=== PATIENT | male | born 1945 | race Caucasian/White ===

== ENCOUNTER 2018-01-11 05:15 | Inpatient (IN) | payer MEDICARE, BC, OTHER ==
[2018-01-11 05:38] LABS: ADD MAN DIFF? NO
[2018-01-11 05:44] LABS: BASOPHILS % 0.3 % (0.0-2.0); EOSINOPHILS # 0.1 10^3/ul (0.0-0.5); EOSINOPHILS % 0.3 % (0.0-7.0); HEMATOCRIT 40.2 % (42.0-52.0); HEMOGLOBIN 12.5 g/dl (14.0-18.0); LYMPHOCYTES # 0.9 10^3/ul (0.8-2.9); LYMPHOCYTES % 5.8 % (15.0-51.0); MEAN CORPUSCULAR HEMOGLOBIN 29.8 pg (29.0-33.0); MEAN CORPUSCULAR HGB CONC 31.1 g/dl (32.0-37.0); MEAN CORPUSCULAR VOLUME 95.7 fl (82.0-101.0); MEAN PLATELET VOLUME 10.3 fl (7.4-10.4); MONOCYTE # 1.2 10^3/ul (0.3-0.9); MONOCYTES % 7.6 % (0.0-11.0); NEUTROPHIL # 13.2 10^3/ul (1.6-7.5); NEUTROPHILS % 85.7 % (39.0-77.0); PLATELET COUNT 293 10^3/UL (140-415); RED CELL DISTRIBUTION WIDTH 17.5 % (11.5-14.5)
[2018-01-11 05:44] LABS: WHITE BLOOD COUNT 15.4 10^3/ul (4.8-10.8)
[2018-01-11] MEDS: FENTAnyl 50 MCG/ML VIAL IV (05:51)
[2018-01-11 05:56] LABS: AADO2 Arterial 604.1 mmHg (7.0-24.0); Allen Test ACCEPTAB; Arterial Base Excess 6.8 mmol/L (-3.0-3); Arterial Blood Gas Oxygen Sat 93.8 mmHG (95.0-100.0); Arterial COHb 0.1 % (0.0-3.0); Arterial Fraction of Oxyhgb 93.5 % (93.0-99.0); Arterial HCO3 30.4 mmol/L (22.0-26.0); Arterial MetHb 0.2 % (0.0-1.5); Arterial Total Hemglobin 13.2 g/dl (12.0-18.0); Arterial pCO2 39.6 mmhg (35-45); MODE VENT - AC; Site Right Radial
[2018-01-11 06:03] LABS: ANION GAP 14 (8-16); BLOOD UREA NITROGEN 44 mg/dl (7-20); CALCIUM 9.3 mg/dl (8.4-10.2); CARBON DIOXIDE 35 mmol/L (21-31); CHLORIDE 104 mmol/L (97-110); CREATININE 0.65 mg/dl (0.61-1.24); GLUCOSE 164 mg/dl (70-220); POTASSIUM 4.7 mmol/L (3.5-5.1); SODIUM 148 mmol/L (135-144)
[2018-01-11 06:04] LABS: INR 1.02; PARTIAL THROMBOPLASTIN TIME 29.8 Sec (25.0-35.0); PROTIME 13.5 Sec (11.9-14.9); PT RATIO 1.1
[2018-01-11] MEDS: SODIUM CHLORIDE 0.9% 1L BAG IV* (06:10)
[2018-01-11] MEDS: CEFEPIME 1GM/50 ML (PMX) 50 ML IVPB (06:12)
[2018-01-11 06:21] LABS: TROPONIN-I < 0.010 ng/ml (0.000-0.120)
[2018-01-11] MEDS ORDERED: ACETAMINOPHEN 325 MG TAB PO (06:30)
[2018-01-11] MEDS ORDERED: ONDANSETRON 4 MG INJ IV (06:30)
[2018-01-11 06:41] LABS: LACTIC ACID 3.3 mmol/L (0.5-2.0)
[2018-01-11] MEDS: VANCOMYCIN 1 GM (PMX) 250 ML IVPB (06:45)
[2018-01-11] MEDS: FUROSEMIDE 20 MG INJ IV (12:24)
[2018-01-11] MEDS ORDERED: NACL 0.9% 3 ML SYG IV (12:30)
[2018-01-11] MEDS: LANSOPRAZOLE 30 MG CAP GTB (13:41)
[2018-01-11] MEDS: LORAZEPAM 2 MG INJ IV (13:41)
[2018-01-11] MEDS ORDERED: VANCOMYCIN IV PER PHARMACY XX (18:00)
[2018-01-11] MEDS: DOXAZOSIN 2 MG TAB GTB (21:00)
[2018-01-11] MEDS ORDERED: DOXAZOSIN 2 MG TAB GTB (21:00)
[2018-01-11] MEDS: MEROPENEM 1 GM/50ML(PMX) 50 ML IVPB (21:53)
[2018-01-11] MEDS: QUETIAPINE 25 MG TAB GTB (22:06)
[2018-01-11] MEDS: ATORVASTATIN 20 MG TAB PO (22:07)
[2018-01-12] MEDS: MEROPENEM 1 GM/50ML(PMX) 50 ML IVPB ×3 (05:02→20:26)
[2018-01-12] MEDS: LANSOPRAZOLE 30 MG CAP GTB (05:04)
[2018-01-12] MEDS: ACETAMINOPHEN 325 MG TAB GTB (05:04)
[2018-01-12] MEDS: VANCOMYCIN 1 GM 250 ML IVPB ×2 (05:53→17:37)
[2018-01-12 08:26] LABS: ADD MAN DIFF? NO
[2018-01-12 08:31] LABS: WHITE BLOOD COUNT 12.9 10^3/ul (4.8-10.8)
[2018-01-12 08:31] LABS: BASOPHIL # 0.1 10^3/ul (0.0-0.1); BASOPHILS % 0.5 % (0.0-2.0); EOSINOPHILS # 0.1 10^3/ul (0.0-0.5); EOSINOPHILS % 0.7 % (0.0-7.0); HEMATOCRIT 34.7 % (42.0-52.0); HEMOGLOBIN 10.6 g/dl (14.0-18.0); LYMPHOCYTES # 0.8 10^3/ul (0.8-2.9); LYMPHOCYTES % 6.5 % (15.0-51.0); MEAN CORPUSCULAR HEMOGLOBIN 29.2 pg (29.0-33.0); MEAN CORPUSCULAR HGB CONC 30.5 g/dl (32.0-37.0); MEAN CORPUSCULAR VOLUME 95.6 fl (82.0-101.0); MEAN PLATELET VOLUME 10.4 fl (7.4-10.4); MONOCYTE # 0.9 10^3/ul (0.3-0.9); MONOCYTES % 7.2 % (0.0-11.0); NEUTROPHIL # 10.9 10^3/ul (1.6-7.5); NEUTROPHILS % 84.8 % (39.0-77.0); PLATELET COUNT 275 10^3/UL (140-415); RED BLOOD COUNT 3.63 10^6/ul (4.70-6.10); RED CELL DISTRIBUTION WIDTH 17.2 % (11.5-14.5)
[2018-01-12 08:46] LABS: LACTIC ACID 1.4 mmol/L (0.5-2.0)
[2018-01-12] MEDS ORDERED: ASPIRIN (EC) 81 MG TAB PO (09:00)
[2018-01-12 09:05] LABS: ALANINE AMINOTRANSFERASE 27 IU/L (13-69); ALBUMIN 2.9 g/dl (3.3-4.9); ALBUMIN/GLOBULIN RATIO 0.82; ALKALINE PHOSPHATASE 124 IU/L (42-121); ASPARTATE AMINO TRANSFERASE 21 IU/L (15-46); BILIRUBIN,INDIRECT 0.2 mg/dl (0-1.1); BILIRUBIN,TOTAL 0.2 mg/dl (0.2-1.3); BLOOD UREA NITROGEN 32 mg/dl (7-20); CALCIUM 8.6 mg/dl (8.4-10.2); CARBON DIOXIDE 32 mmol/L (21-31); CHLORIDE 106 mmol/L (97-110); CREATININE 0.51 mg/dl (0.61-1.24); GLUCOSE 101 mg/dl (70-220); POTASSIUM 3.9 mmol/L (3.5-5.1); TOTAL PROTEIN 6.4 g/dl (6.1-8.1)
[2018-01-12] MEDS: BISACODYL 10 MG SUPP PR (09:37)
[2018-01-12] MEDS: DONEPEZIL 10 MG TAB GTB (09:38)
[2018-01-12] MEDS: DOCUSATE SODIUM 10 MG/ML (10ML CUP) GTB (09:38)
[2018-01-12] MEDS: ASPIRIN 81 MG TAB PO (09:38)
[2018-01-12 09:39] LABS: ANION GAP 8 (8-16); SODIUM 142 mmol/L (135-144)
[2018-01-12] MEDS: CARBIDOPA/LEVODOPA (25/100) TAB GTB (09:39)
[2018-01-12] MEDS: FUROSEMIDE 20 MG TAB PO (09:40)
[2018-01-12] MEDS: ENOXAPARIN 30 MG/0.3 ML SYG SC (09:46)
[2018-01-12] MEDS: QUETIAPINE 25 MG TAB GTB (20:24)
[2018-01-12] MEDS: DOXAZOSIN 2 MG TAB GTB (20:24)
[2018-01-12] MEDS: ATORVASTATIN 20 MG TAB PO (20:24)
[2018-01-13] MEDS: SOD CHLORIDE 0.9% 500 ML IV (04:18)
[2018-01-13] MEDS: MEROPENEM 1 GM/50ML(PMX) 50 ML IVPB ×3 (05:50→21:24)
[2018-01-13] MEDS: LANSOPRAZOLE 30 MG CAP GTB (05:50)
[2018-01-13] MEDS: VANCOMYCIN 1 GM 250 ML IVPB ×2 (05:50→18:21)
[2018-01-13 07:49] LABS: LACTIC ACID 0.8 mmol/L (0.5-2.0)
[2018-01-13 08:54] LABS: AADO2 Arterial 233.3 mmHg (7.0-24.0); Allen Test ACCEPTAB; Arterial Base Excess 3.1 mmol/L (-3.0-3); Arterial Blood Gas Oxygen Sat 98.9 mmHG (95.0-100.0); Arterial COHb 0.3 % (0.0-3.0); Arterial Fraction of Oxyhgb 98.4 % (93.0-99.0); Arterial MetHb 0.2 % (0.0-1.5); Arterial Total Hemglobin 11.4 g/dl (12.0-18.0); Arterial pCO2 38.7 mmhg (35-45); MODE VENT - AC; Site Left Radial
[2018-01-13] MEDS: BISACODYL 10 MG SUPP PR (09:13)
[2018-01-13] MEDS: DOCUSATE SODIUM 10 MG/ML (10ML CUP) GTB (09:13)
[2018-01-13] MEDS: CARBIDOPA/LEVODOPA (25/100) TAB GTB (09:13)
[2018-01-13] MEDS: DONEPEZIL 10 MG TAB GTB (09:13)
[2018-01-13] MEDS: ASPIRIN 81 MG TAB PO (09:13)
[2018-01-13] MEDS: ENOXAPARIN 30 MG/0.3 ML SYG SC (09:15)
[2018-01-13 18:11] LABS: VANCOMYCIN,TROUGH 9.8 ug/ml (10.0-20.0)
[2018-01-13] MEDS: DOXAZOSIN 2 MG TAB GTB (21:23)
[2018-01-13] MEDS: QUETIAPINE 25 MG TAB GTB (21:24)
[2018-01-13] MEDS: ATORVASTATIN 20 MG TAB PO (21:24)
[2018-01-14] MEDS: HYDROCODONE/APAP (5/325) TAB GTB (02:23)
[2018-01-14] MEDS: LANSOPRAZOLE 30 MG CAP GTB (05:57)
[2018-01-14] MEDS: MEROPENEM 1 GM/50ML(PMX) 50 ML IVPB ×2 (05:57→13:32)
[2018-01-14] MEDS: VANCOMYCIN 1.25 GM in SOD CHLORIDE 0.9% 250 ML IVPB ×2 (06:27→17:57)
[2018-01-14] MEDS: DONEPEZIL 10 MG TAB GTB (08:52)
[2018-01-14] MEDS: CARBIDOPA/LEVODOPA (25/100) TAB GTB (08:53)
[2018-01-14] MEDS: BISACODYL 10 MG SUPP PR (08:53)
[2018-01-14] MEDS: ASPIRIN 81 MG TAB PO (08:53)
[2018-01-14] MEDS: DOCUSATE SODIUM 10 MG/ML (10ML CUP) GTB (08:53)
[2018-01-14] MEDS: ENOXAPARIN 30 MG/0.3 ML SYG SC (09:02)
[2018-01-14 09:44] LABS: ADD MAN DIFF? NO
[2018-01-14 09:51] LABS: WHITE BLOOD COUNT 6.3 10^3/ul (4.8-10.8)
[2018-01-14 09:51] LABS: BASOPHILS % 0.5 % (0.0-2.0); EOSINOPHILS # 0.1 10^3/ul (0.0-0.5); EOSINOPHILS % 1.9 % (0.0-7.0); HEMATOCRIT 34.2 % (42.0-52.0); HEMOGLOBIN 10.5 g/dl (14.0-18.0); LYMPHOCYTES # 0.6 10^3/ul (0.8-2.9); LYMPHOCYTES % 9.6 % (15.0-51.0); MEAN CORPUSCULAR HEMOGLOBIN 29.1 pg (29.0-33.0); MEAN CORPUSCULAR HGB CONC 30.7 g/dl (32.0-37.0); MEAN CORPUSCULAR VOLUME 94.7 fl (82.0-101.0); MONOCYTE # 0.4 10^3/ul (0.3-0.9); MONOCYTES % 5.8 % (0.0-11.0); NEUTROPHIL # 5.1 10^3/ul (1.6-7.5); NEUTROPHILS % 81.9 % (39.0-77.0); PLATELET COUNT 276 10^3/UL (140-415); RED BLOOD COUNT 3.61 10^6/ul (4.70-6.10); RED CELL DISTRIBUTION WIDTH 16.4 % (11.5-14.5)
[2018-01-14 10:08] LABS: ANION GAP 5 (8-16); BLOOD UREA NITROGEN 22 mg/dl (7-20); CALCIUM 8.6 mg/dl (8.4-10.2); CARBON DIOXIDE 32 mmol/L (21-31); CHLORIDE 106 mmol/L (97-110); CREATININE 0.46 mg/dl (0.61-1.24); GLUCOSE 101 mg/dl (70-220); SODIUM 139 mmol/L (135-144)
[2018-01-14] MEDS: DOXAZOSIN 2 MG TAB GTB (21:00)
[2018-01-14] MEDS: ATORVASTATIN 20 MG TAB PO (21:27)
[2018-01-14] MEDS: QUETIAPINE 25 MG TAB GTB (21:27)
[2018-01-14] MEDS: CEFTRIAXONE 1 GM/50 ML (PMX) 50 ML IVPB (21:28)
[2018-01-15] MEDS: LANSOPRAZOLE 30 MG CAP GTB (05:16)
[2018-01-15] MEDS: DONEPEZIL 10 MG TAB GTB (08:15)
[2018-01-15] MEDS: CARBIDOPA/LEVODOPA (25/100) TAB GTB (08:15)
[2018-01-15] MEDS: DOCUSATE SODIUM 10 MG/ML (10ML CUP) GTB (08:15)
[2018-01-15] MEDS: ASPIRIN 81 MG TAB PO (08:15)
[2018-01-15] MEDS: BISACODYL 10 MG SUPP PR (08:15)
[2018-01-15] MEDS: ENOXAPARIN 30 MG/0.3 ML SYG SC (08:16)
[2018-01-15 09:33] LABS: ADD MAN DIFF? NO
[2018-01-15 09:45] LABS: BASOPHILS % 0.5 % (0.0-2.0); EOSINOPHILS # 0.1 10^3/ul (0.0-0.5); EOSINOPHILS % 1.5 % (0.0-7.0); HEMATOCRIT 35.5 % (42.0-52.0); LYMPHOCYTES # 0.7 10^3/ul (0.8-2.9); MEAN CORPUSCULAR HEMOGLOBIN 29.3 pg (29.0-33.0); MEAN CORPUSCULAR VOLUME 94.7 fl (82.0-101.0); MEAN PLATELET VOLUME 10.4 fl (7.4-10.4); MONOCYTE # 0.5 10^3/ul (0.3-0.9); MONOCYTES % 5.2 % (0.0-11.0); NEUTROPHIL # 7.3 10^3/ul (1.6-7.5); NEUTROPHILS % 84.5 % (39.0-77.0); PLATELET COUNT 321 10^3/UL (140-415); RED BLOOD COUNT 3.75 10^6/ul (4.70-6.10); RED CELL DISTRIBUTION WIDTH 16.2 % (11.5-14.5)
[2018-01-15 09:45] LABS: WHITE BLOOD COUNT 8.6 10^3/ul (4.8-10.8)
[2018-01-15 10:09] LABS: ANION GAP 9 (8-16); BLOOD UREA NITROGEN 21 mg/dl (7-20); CALCIUM 8.7 mg/dl (8.4-10.2); CARBON DIOXIDE 32 mmol/L (21-31); CHLORIDE 102 mmol/L (97-110); CREATININE 0.46 mg/dl (0.61-1.24); GLUCOSE 113 mg/dl (70-220); POTASSIUM 4.2 mmol/L (3.5-5.1); SODIUM 139 mmol/L (135-144)
[2018-01-15] MEDS: FUROSEMIDE 20 MG INJ IV (13:34)
[2018-01-15] MEDS: ATORVASTATIN 20 MG TAB PO (20:54)
[2018-01-15] MEDS: CEFTRIAXONE 1 GM/50 ML (PMX) 50 ML IVPB (20:55)
[2018-01-15] MEDS: QUETIAPINE 25 MG TAB GTB (20:55)
[2018-01-15] MEDS: DOXAZOSIN 2 MG TAB GTB (20:55)
[2018-01-16] MEDS: LANSOPRAZOLE 30 MG CAP GTB (06:19)
[2018-01-16 07:26] LABS: ADD MAN DIFF? NO
[2018-01-16 07:28] LABS: BASOPHILS % 0.5 % (0.0-2.0); EOSINOPHILS # 0.2 10^3/ul (0.0-0.5); EOSINOPHILS % 2.3 % (0.0-7.0); HEMOGLOBIN 11.4 g/dl (14.0-18.0); LYMPHOCYTES # 0.8 10^3/ul (0.8-2.9); LYMPHOCYTES % 10.8 % (15.0-51.0); MEAN CORPUSCULAR HEMOGLOBIN 29.7 pg (29.0-33.0); MEAN CORPUSCULAR HGB CONC 31.7 g/dl (32.0-37.0); MEAN CORPUSCULAR VOLUME 93.8 fl (82.0-101.0); MEAN PLATELET VOLUME 9.5 fl (7.4-10.4); MONOCYTE # 0.6 10^3/ul (0.3-0.9); MONOCYTES % 7.7 % (0.0-11.0); NEUTROPHIL # 5.8 10^3/ul (1.6-7.5); NEUTROPHILS % 78.4 % (39.0-77.0); PLATELET COUNT 328 10^3/UL (140-415); RED BLOOD COUNT 3.84 10^6/ul (4.70-6.10); RED CELL DISTRIBUTION WIDTH 16.2 % (11.5-14.5)
[2018-01-16 07:28] LABS: WHITE BLOOD COUNT 7.4 10^3/ul (4.8-10.8)
[2018-01-16 07:53] LABS: ANION GAP 7 (8-16); BLOOD UREA NITROGEN 32 mg/dl (7-20); CARBON DIOXIDE 33 mmol/L (21-31); CHLORIDE 105 mmol/L (97-110); CREATININE 0.52 mg/dl (0.61-1.24); GLUCOSE 121 mg/dl (70-220); POTASSIUM 4.4 mmol/L (3.5-5.1); SODIUM 141 mmol/L (135-144)
[2018-01-16] MEDS: DONEPEZIL 10 MG TAB GTB (08:17)
[2018-01-16] MEDS: BISACODYL 10 MG SUPP PR (08:17)
[2018-01-16] MEDS: CARBIDOPA/LEVODOPA (25/100) TAB GTB ×3 (08:17→20:15)
[2018-01-16] MEDS: DOCUSATE SODIUM 10 MG/ML (10ML CUP) GTB (08:17)
[2018-01-16] MEDS: ASPIRIN 81 MG TAB PO (08:17)
[2018-01-16] MEDS: FUROSEMIDE 20 MG INJ IV (08:17)
[2018-01-16] MEDS: ENOXAPARIN 30 MG/0.3 ML SYG SC (08:22)
[2018-01-16] MEDS: QUETIAPINE 25 MG TAB GTB (20:16)
[2018-01-16] MEDS: DOXAZOSIN 2 MG TAB GTB (20:16)
[2018-01-16] MEDS: ATORVASTATIN 20 MG TAB PO (20:16)
[2018-01-16] MEDS: CLOTRIMAZOLE 1% 30 GM CR TOP (21:11)
[2018-01-16] MEDS: CEFTRIAXONE 1 GM/50 ML (PMX) 50 ML IVPB (22:16)
[2018-01-17] MEDS: LANSOPRAZOLE 30 MG CAP GTB (06:29)
[2018-01-17 07:51] LABS: ADD MAN DIFF? NO
[2018-01-17 07:58] LABS: WHITE BLOOD COUNT 8.1 10^3/ul (4.8-10.8)
[2018-01-17 07:58] LABS: BASOPHIL # 0.1 10^3/ul (0.0-0.1); BASOPHILS % 0.6 % (0.0-2.0); EOSINOPHILS # 0.1 10^3/ul (0.0-0.5); EOSINOPHILS % 1.7 % (0.0-7.0); HEMATOCRIT 38.4 % (42.0-52.0); HEMOGLOBIN 11.9 g/dl (14.0-18.0); LYMPHOCYTES # 0.7 10^3/ul (0.8-2.9); LYMPHOCYTES % 8.8 % (15.0-51.0); MEAN CORPUSCULAR HEMOGLOBIN 29.1 pg (29.0-33.0); MEAN CORPUSCULAR VOLUME 93.9 fl (82.0-101.0); MEAN PLATELET VOLUME 10.1 fl (7.4-10.4); MONOCYTE # 0.6 10^3/ul (0.3-0.9); MONOCYTES % 6.8 % (0.0-11.0); NEUTROPHIL # 6.6 10^3/ul (1.6-7.5); NEUTROPHILS % 81.9 % (39.0-77.0); PLATELET COUNT 335 10^3/UL (140-415); RED BLOOD COUNT 4.09 10^6/ul (4.70-6.10); RED CELL DISTRIBUTION WIDTH 16.5 % (11.5-14.5)
[2018-01-17 08:15] LABS: ANION GAP 12 (8-16); BLOOD UREA NITROGEN 37 mg/dl (7-20); CALCIUM 9.1 mg/dl (8.4-10.2); CARBON DIOXIDE 32 mmol/L (21-31); CHLORIDE 104 mmol/L (97-110); CREATININE 0.55 mg/dl (0.61-1.24); GLUCOSE 120 mg/dl (70-220); SODIUM 144 mmol/L (135-144)
[2018-01-17] MEDS: BISACODYL 10 MG SUPP PR (08:41)
[2018-01-17] MEDS: ASPIRIN 81 MG TAB PO (08:41)
[2018-01-17] MEDS: DOCUSATE SODIUM 10 MG/ML (10ML CUP) GTB (08:41)
[2018-01-17] MEDS: DONEPEZIL 10 MG TAB GTB (08:41)
[2018-01-17] MEDS: ENOXAPARIN 30 MG/0.3 ML SYG SC (08:42)
[2018-01-17] MEDS: CLOTRIMAZOLE 1% 30 GM CR TOP ×2 (08:51→21:37)
[2018-01-17] MEDS: CARBIDOPA/LEVODOPA (25/100) TAB GTB ×5 (08:57→21:37)
[2018-01-17] MEDS: FUROSEMIDE 20 MG INJ IV (10:41)
[2018-01-17] MEDS: DOXAZOSIN 2 MG TAB GTB (21:00)
[2018-01-17] MEDS: QUETIAPINE 25 MG TAB GTB (21:31)
[2018-01-17] MEDS: ATORVASTATIN 20 MG TAB PO (21:31)
[2018-01-17] MEDS: CEFTRIAXONE 1 GM/50 ML (PMX) 50 ML IVPB (21:32)
[2018-01-18] MEDS: LANSOPRAZOLE 30 MG CAP GTB (06:00)
[2018-01-18 07:43] LABS: ANION GAP 11 (8-16); BLOOD UREA NITROGEN 46 mg/dl (7-20); CALCIUM 9.5 mg/dl (8.4-10.2); CARBON DIOXIDE 34 mmol/L (21-31); CHLORIDE 106 mmol/L (97-110); CREATININE 0.64 mg/dl (0.61-1.24); GLUCOSE 141 mg/dl (70-220); POTASSIUM 4.1 mmol/L (3.5-5.1); SODIUM 147 mmol/L (135-144)
[2018-01-18] MEDS: BISACODYL 10 MG SUPP PR (09:14)
[2018-01-18] MEDS: DONEPEZIL 10 MG TAB GTB (09:15)
[2018-01-18] MEDS: ASPIRIN 81 MG TAB PO (09:15)
[2018-01-18] MEDS: FUROSEMIDE 20 MG INJ IV (09:15)
[2018-01-18] MEDS: DOCUSATE SODIUM 10 MG/ML (10ML CUP) GTB (09:15)
[2018-01-18] MEDS: CARBIDOPA/LEVODOPA (25/100) TAB GTB ×5 (09:15→22:40)
[2018-01-18] MEDS: ENOXAPARIN 30 MG/0.3 ML SYG SC (09:18)
[2018-01-18] MEDS: CLOTRIMAZOLE 1% 30 GM CR TOP ×2 (09:19→22:38)
[2018-01-18] MEDS: DOXAZOSIN 2 MG TAB GTB (21:00)
[2018-01-18] MEDS: CEFTRIAXONE 1 GM/50 ML (PMX) 50 ML IVPB (22:37)
[2018-01-18] MEDS: QUETIAPINE 25 MG TAB GTB (22:37)
[2018-01-18] MEDS: ATORVASTATIN 20 MG TAB PO (22:37)
[2018-01-19 03:13] LABS: ADD MAN DIFF? NO
[2018-01-19 03:15] LABS: BASOPHIL # 0.1 10^3/ul (0.0-0.1); BASOPHILS % 0.5 % (0.0-2.0); EOSINOPHILS % 0.1 % (0.0-7.0); HEMATOCRIT 39.8 % (42.0-52.0); HEMOGLOBIN 12.4 g/dl (14.0-18.0); LYMPHOCYTES % 7.6 % (15.0-51.0); MEAN CORPUSCULAR HEMOGLOBIN 29.3 pg (29.0-33.0); MEAN CORPUSCULAR HGB CONC 31.2 g/dl (32.0-37.0); MEAN CORPUSCULAR VOLUME 94.1 fl (82.0-101.0); MEAN PLATELET VOLUME 10.3 fl (7.4-10.4); MONOCYTE # 1.2 10^3/ul (0.3-0.9); MONOCYTES % 8.7 % (0.0-11.0); NEUTROPHILS % 82.8 % (39.0-77.0); PLATELET COUNT 395 10^3/UL (140-415); RED BLOOD COUNT 4.23 10^6/ul (4.70-6.10)
[2018-01-19 03:15] LABS: WHITE BLOOD COUNT 13.3 10^3/ul (4.8-10.8)
[2018-01-19 03:37] LABS: ANION GAP 10 (8-16); BLOOD UREA NITROGEN 55 mg/dl (7-20); CALCIUM 9.3 mg/dl (8.4-10.2); CARBON DIOXIDE 33 mmol/L (21-31); CHLORIDE 109 mmol/L (97-110); CREATININE 0.69 mg/dl (0.61-1.24); GLUCOSE 121 mg/dl (70-220); SODIUM 148 mmol/L (135-144)
[2018-01-19 06:56] LABS: PROCALCITONIN 0.13 ng/mL (<0.10)
[2018-01-19] MEDS: LANSOPRAZOLE 30 MG CAP GTB (07:50)
[2018-01-19] MEDS: ASPIRIN 81 MG TAB PO (09:11)
[2018-01-19] MEDS: CARBIDOPA/LEVODOPA (25/100) TAB GTB ×5 (09:11→21:25)
[2018-01-19] MEDS: DONEPEZIL 10 MG TAB GTB (09:11)
[2018-01-19] MEDS: BISACODYL 10 MG SUPP PR (09:11)
[2018-01-19] MEDS: DOCUSATE SODIUM 10 MG/ML (10ML CUP) GTB (09:12)
[2018-01-19] MEDS: ENOXAPARIN 30 MG/0.3 ML SYG SC (09:13)
[2018-01-19] MEDS: CLOTRIMAZOLE 1% 30 GM CR TOP ×2 (09:14→20:57)
[2018-01-19] MEDS: SOD CHLORIDE 0.9% 150 ML IV (09:39)
[2018-01-19] MEDS: ENTACAPONE 200 MG TAB GTB ×4 (11:53→21:24)
[2018-01-19 12:08] LABS: AMMONIA 14 umol/l (9-30)
[2018-01-19 13:19] LABS: ADD UMIC YES; UR ASCORBIC ACID 40 mg/dL (NEGATIVE); UR BILIRUBIN (Dip) NEGATIVE (NEGATIVE); UR BLOOD (Dip) NEGATIVE (NEGATIVE); UR CLARITY CLEAR (CLEAR); UR COLOR YELLOW (YELLOW); UR GLUCOSE (Dip) NEGATIVE (NEGATIVE); UR KETONES (Dip) NEGATIVE (NEGATIVE); UR LEUKOCYTE ESTERASE (Dip) TRACE Leu/ul (NEGATIVE); UR MUCUS FEW /HPF (NONE SEEN); UR NITRITE (Dip) NEGATIVE (NEGATIVE); UR RBC 2 /HPF (0-5); UR SPECIFIC GRAVITY (Dip) 1.023 (1.003-1.030); UR TOTAL PROTEIN (Dip) NEGATIVE (NEGATIVE); UR UROBILINOGEN (Dip) NEGATIVE (NEGATIVE); UR WBC 8 /HPF (0-5)
[2018-01-19] MEDS: QUETIAPINE 25 MG TAB GTB (20:57)
[2018-01-19] MEDS: ATORVASTATIN 20 MG TAB PO (20:57)
[2018-01-19] MEDS: CEFTRIAXONE 1 GM/50 ML (PMX) 50 ML IVPB (20:58)
[2018-01-19] MEDS: DOXAZOSIN 2 MG TAB GTB (20:58)
[2018-01-20] MEDS: HYDROCODONE/APAP (5/325) TAB GTB ×2 (02:21→09:13)
[2018-01-20 04:59] LABS: AADO2 Arterial 98.1 mmHg (7.0-24.0); Allen Test ACCEPTAB; Arterial COHb 0.3 % (0.0-3.0); Arterial Fraction of Oxyhgb 94.5 % (93.0-99.0); Arterial HCO3 30.2 mmol/L (22.0-26.0); Arterial MetHb 0.2 % (0.0-1.5); Arterial Total Hemglobin 14.6 g/dl (12.0-18.0); Arterial pCO2 37.6 mmhg (35-45); MODE VENT - AC; Site Left Radial
[2018-01-20 06:49] LABS: ADD MAN DIFF? NO
[2018-01-20] MEDS: LANSOPRAZOLE 30 MG CAP GTB (06:52)
[2018-01-20 06:55] LABS: BASOPHILS % 0.4 % (0.0-2.0); EOSINOPHILS % 0.1 % (0.0-7.0); HEMATOCRIT 39.2 % (42.0-52.0); HEMOGLOBIN 12.2 g/dl (14.0-18.0); LYMPHOCYTES # 0.8 10^3/ul (0.8-2.9); LYMPHOCYTES % 7.3 % (15.0-51.0); MEAN CORPUSCULAR HEMOGLOBIN 29.9 pg (29.0-33.0); MEAN CORPUSCULAR HGB CONC 31.1 g/dl (32.0-37.0); MEAN CORPUSCULAR VOLUME 96.1 fl (82.0-101.0); MEAN PLATELET VOLUME 10.3 fl (7.4-10.4); MONOCYTES % 9.5 % (0.0-11.0); NEUTROPHIL # 8.5 10^3/ul (1.6-7.5); NEUTROPHILS % 82.5 % (39.0-77.0); PLATELET COUNT 358 10^3/UL (140-415); RED BLOOD COUNT 4.08 10^6/ul (4.70-6.10); RED CELL DISTRIBUTION WIDTH 16.9 % (11.5-14.5)
[2018-01-20 06:55] LABS: WHITE BLOOD COUNT 10.3 10^3/ul (4.8-10.8)
[2018-01-20 07:27] LABS: ANION GAP 13 (8-16); BLOOD UREA NITROGEN 52 mg/dl (7-20); CALCIUM 8.9 mg/dl (8.4-10.2); CARBON DIOXIDE 31 mmol/L (21-31); CHLORIDE 109 mmol/L (97-110); CREATININE 0.68 mg/dl (0.61-1.24); GLUCOSE 126 mg/dl (70-220); POTASSIUM 3.7 mmol/L (3.5-5.1); SODIUM 149 mmol/L (135-144)
[2018-01-20 07:33] LABS: MAGNESIUM 2.3 mg/dl (1.7-2.5)
[2018-01-20] MEDS: CARBIDOPA/LEVODOPA (25/100) TAB GTB ×5 (09:12→22:53)
[2018-01-20] MEDS: CLOTRIMAZOLE 1% 30 GM CR TOP ×2 (09:12→22:54)
[2018-01-20] MEDS: BISACODYL 10 MG SUPP PR (09:12)
[2018-01-20] MEDS: ENTACAPONE 200 MG TAB GTB ×5 (09:13→22:53)
[2018-01-20] MEDS: DOCUSATE SODIUM 10 MG/ML (10ML CUP) GTB (09:13)
[2018-01-20] MEDS: ASPIRIN 81 MG TAB PO (09:13)
[2018-01-20] MEDS: DONEPEZIL 10 MG TAB GTB (09:13)
[2018-01-20] MEDS: ENOXAPARIN 30 MG/0.3 ML SYG SC (09:24)
[2018-01-20] MEDS ORDERED: VANCOMYCIN IV PER PHARMACY XX (11:00)
[2018-01-20] MEDS: VANCOMYCIN 1.25 GM in SOD CHLORIDE 0.9% 250 ML IVPB ×2 (13:09→23:58)
[2018-01-20] MEDS: SOD CHLORIDE 0.9% 250 ML IV (14:31)
[2018-01-20] MEDS: PIPER-TAZO 3.375 GM IV (PMX) 100 ML IVPB ×2 (16:22→22:31)
[2018-01-20] MEDS: DOXAZOSIN 2 MG TAB GTB (22:31)
[2018-01-20] MEDS: QUETIAPINE 25 MG TAB GTB (22:31)
[2018-01-20] MEDS: ATORVASTATIN 20 MG TAB PO (22:31)
[2018-01-21] MEDS: LANSOPRAZOLE 30 MG CAP GTB (06:04)
[2018-01-21] MEDS: PIPER-TAZO 3.375 GM IV (PMX) 100 ML IVPB ×3 (06:04→21:50)
[2018-01-21 07:55] LABS: ANION GAP 10 (8-16); BLOOD UREA NITROGEN 40 mg/dl (7-20); CALCIUM 8.6 mg/dl (8.4-10.2); CARBON DIOXIDE 33 mmol/L (21-31); CHLORIDE 111 mmol/L (97-110); CREATININE 0.65 mg/dl (0.61-1.24); GLUCOSE 105 mg/dl (70-220); POTASSIUM 3.7 mmol/L (3.5-5.1); SODIUM 150 mmol/L (135-144)
[2018-01-21] MEDS: DONEPEZIL 10 MG TAB GTB (08:26)
[2018-01-21] MEDS: BISACODYL 10 MG SUPP PR (08:26)
[2018-01-21] MEDS: DOCUSATE SODIUM 10 MG/ML (10ML CUP) GTB (08:26)
[2018-01-21] MEDS: ASPIRIN 81 MG TAB PO (08:27)
[2018-01-21] MEDS: CARBIDOPA/LEVODOPA (25/100) TAB GTB ×5 (08:30→21:49)
[2018-01-21] MEDS: CLOTRIMAZOLE 1% 30 GM CR TOP ×2 (08:30→21:50)
[2018-01-21] MEDS: ENTACAPONE 200 MG TAB GTB ×5 (08:30→21:50)
[2018-01-21] MEDS: ENOXAPARIN 30 MG/0.3 ML SYG SC (08:32)
[2018-01-21] MEDS: VANCOMYCIN 1.25 GM in SOD CHLORIDE 0.9% 250 ML IVPB (12:11)
[2018-01-21] MEDS: DEXTROSE 5% 1,000 ML IV (18:52)
[2018-01-21] MEDS: DOXAZOSIN 2 MG TAB GTB (21:00)
[2018-01-21] MEDS: ATORVASTATIN 20 MG TAB PO (21:49)
[2018-01-21] MEDS: FLUCONAZOLE 100 MG TAB GTB (21:50)
[2018-01-21] MEDS: QUETIAPINE 25 MG TAB GTB (21:50)
[2018-01-21] MEDS ORDERED: VITAMIN A & D 5 GM OINT PACKET TOP (22:56)
[2018-01-22 01:02] LABS: VANCOMYCIN,TROUGH 13.4 ug/ml (10.0-20.0)
[2018-01-22] MEDS: VANCOMYCIN 1.25 GM in SOD CHLORIDE 0.9% 250 ML IVPB (01:13)
[2018-01-22] MEDS: LANSOPRAZOLE 30 MG CAP GTB (06:32)
[2018-01-22] MEDS: PIPER-TAZO 3.375 GM IV (PMX) 100 ML IVPB ×3 (06:33→18:25)
[2018-01-22 08:09] LABS: ANION GAP 6 (8-16); BLOOD UREA NITROGEN 38 mg/dl (7-20); CALCIUM 8.3 mg/dl (8.4-10.2); CARBON DIOXIDE 31 mmol/L (21-31); CHLORIDE 114 mmol/L (97-110); CREATININE 0.61 mg/dl (0.61-1.24); GLUCOSE 129 mg/dl (70-220); POTASSIUM 3.8 mmol/L (3.5-5.1); SODIUM 147 mmol/L (135-144)
[2018-01-22] MEDS: BISACODYL 10 MG SUPP PR (09:00)
[2018-01-22] MEDS: DOCUSATE SODIUM 10 MG/ML (10ML CUP) GTB (09:03)
[2018-01-22] MEDS: ASPIRIN 81 MG TAB PO (09:03)
[2018-01-22] MEDS: DONEPEZIL 10 MG TAB GTB (09:03)
[2018-01-22] MEDS: FLUCONAZOLE 100 MG TAB GTB (09:03)
[2018-01-22] MEDS: CLOTRIMAZOLE 1% 30 GM CR TOP ×2 (09:04→21:26)
[2018-01-22] MEDS: CARBIDOPA/LEVODOPA (25/100) TAB GTB ×5 (09:06→21:26)
[2018-01-22] MEDS: ENTACAPONE 200 MG TAB GTB ×5 (09:06→21:26)
[2018-01-22] MEDS: ENOXAPARIN 30 MG/0.3 ML SYG SC (09:37)
[2018-01-22] MEDS: DEXTROSE 5% 1,000 ML IV (15:00)
[2018-01-22] MEDS: QUETIAPINE 25 MG TAB GTB (21:14)
[2018-01-22] MEDS: DOXAZOSIN 2 MG TAB GTB (21:26)
[2018-01-22] MEDS: ATORVASTATIN 10 MG TAB PO (21:27)
[2018-01-23] MEDS: PIPER-TAZO 3.375 GM IV (PMX) 100 ML IVPB ×4 (00:33→18:16)
[2018-01-23] MEDS: DEXTROSE 5% 1,000 ML IV (01:59)
[2018-01-23] MEDS: LANSOPRAZOLE 30 MG CAP GTB (05:10)
[2018-01-23 07:50] LABS: ANION GAP 7 (8-16); BLOOD UREA NITROGEN 32 mg/dl (7-20); CALCIUM 8.4 mg/dl (8.4-10.2); CARBON DIOXIDE 30 mmol/L (21-31); CHLORIDE 112 mmol/L (97-110); CREATININE 0.54 mg/dl (0.61-1.24); GLUCOSE 104 mg/dl (70-220); POTASSIUM 3.8 mmol/L (3.5-5.1); SODIUM 145 mmol/L (135-144)
[2018-01-23] MEDS: FLUCONAZOLE 100 MG TAB GTB (09:37)
[2018-01-23] MEDS: ASPIRIN 81 MG TAB PO (09:37)
[2018-01-23] MEDS: DONEPEZIL 10 MG TAB GTB (09:37)
[2018-01-23] MEDS: DOCUSATE SODIUM 10 MG/ML (10ML CUP) GTB (09:37)
[2018-01-23] MEDS: BISACODYL 10 MG SUPP PR (09:38)
[2018-01-23] MEDS: ENTACAPONE 200 MG TAB GTB ×5 (09:38→21:50)
[2018-01-23] MEDS: CLOTRIMAZOLE 1% 30 GM CR TOP ×2 (09:38→21:50)
[2018-01-23] MEDS: CARBIDOPA/LEVODOPA (25/100) TAB GTB ×5 (09:38→21:50)
[2018-01-23] MEDS: ENOXAPARIN 30 MG/0.3 ML SYG SC (09:46)
[2018-01-23] MEDS: POLYETHYLENE GLYCOL 17 GM PACKET GTB (21:48)
[2018-01-23] MEDS: ATORVASTATIN 10 MG TAB PO (21:48)
[2018-01-23] MEDS: DOXAZOSIN 2 MG TAB GTB (21:50)
[2018-01-23] MEDS: QUETIAPINE 25 MG TAB GTB (21:50)
[2018-01-24] MEDS: PIPER-TAZO 3.375 GM IV (PMX) 100 ML IVPB ×5 (00:15→23:41)
[2018-01-24] MEDS: LANSOPRAZOLE 30 MG CAP GTB (06:36)
[2018-01-24] MEDS: DEXTROSE 5% 1,000 ML IV (07:00)
[2018-01-24 07:44] LABS: ANION GAP 7 (8-16); BLOOD UREA NITROGEN 21 mg/dl (7-20); CALCIUM 8.4 mg/dl (8.4-10.2); CARBON DIOXIDE 29 mmol/L (21-31); CHLORIDE 111 mmol/L (97-110); GLUCOSE 117 mg/dl (70-220); POTASSIUM 3.8 mmol/L (3.5-5.1); SODIUM 143 mmol/L (135-144)
[2018-01-24] MEDS: ASPIRIN 81 MG TAB PO (08:51)
[2018-01-24] MEDS: FLUCONAZOLE 100 MG TAB GTB (08:51)
[2018-01-24] MEDS: DOCUSATE SODIUM 10 MG/ML (10ML CUP) GTB (08:51)
[2018-01-24] MEDS: DONEPEZIL 10 MG TAB GTB (08:52)
[2018-01-24] MEDS: BISACODYL 10 MG SUPP PR (08:52)
[2018-01-24] MEDS: CLOTRIMAZOLE 1% 30 GM CR TOP ×2 (08:53→21:10)
[2018-01-24] MEDS: CARBIDOPA/LEVODOPA (25/100) TAB GTB ×6 (08:58→23:43)
[2018-01-24] MEDS: ENTACAPONE 200 MG TAB GTB ×6 (08:58→23:43)
[2018-01-24] MEDS: ENOXAPARIN 30 MG/0.3 ML SYG SC (09:09)
[2018-01-24] MEDS: ATORVASTATIN 10 MG TAB PO (21:09)
[2018-01-24] MEDS: QUETIAPINE 25 MG TAB GTB (21:10)
[2018-01-24] MEDS: DOXAZOSIN 1 MG TAB GTB (21:10)
[2018-01-25] MEDS: DEXTROSE 5% 1,000 ML IV ×2 (03:00→23:47)
[2018-01-25] MEDS: PIPER-TAZO 3.375 GM IV (PMX) 100 ML IVPB ×3 (05:53→17:13)
[2018-01-25] MEDS: LANSOPRAZOLE 30 MG CAP GTB (05:53)
[2018-01-25] MEDS: FLUCONAZOLE 100 MG TAB GTB (07:58)
[2018-01-25] MEDS: ASPIRIN 81 MG TAB PO (07:58)
[2018-01-25] MEDS: DONEPEZIL 10 MG TAB GTB (07:58)
[2018-01-25] MEDS: DOCUSATE SODIUM 10 MG/ML (10ML CUP) GTB (07:58)
[2018-01-25] MEDS: CLOTRIMAZOLE 1% 30 GM CR TOP ×2 (07:59→20:52)
[2018-01-25] MEDS: BISACODYL 10 MG SUPP PR (07:59)
[2018-01-25] MEDS: ENTACAPONE 200 MG TAB GTB ×5 (07:59→20:52)
[2018-01-25] MEDS: CARBIDOPA/LEVODOPA (25/100) TAB GTB ×5 (07:59→20:51)
[2018-01-25] MEDS: ENOXAPARIN 30 MG/0.3 ML SYG SC (08:02)
[2018-01-25] MEDS: QUETIAPINE 25 MG TAB GTB (20:51)
[2018-01-25] MEDS: DOXAZOSIN 1 MG TAB GTB (20:51)
[2018-01-25] MEDS: ATORVASTATIN 10 MG TAB PO (20:52)
[2018-01-26] MEDS: LANSOPRAZOLE 30 MG CAP GTB (05:51)
[2018-01-26 08:12] LABS: ADD MAN DIFF? NO
[2018-01-26 08:52] LABS: WHITE BLOOD COUNT 7.2 10^3/ul (4.8-10.8)
[2018-01-26 08:52] LABS: ABNORMAL IP MESSAGE 1; BASOPHILS % 0.6 % (0.0-2.0); EOSINOPHILS # 0.2 10^3/ul (0.0-0.5); EOSINOPHILS % 3.1 % (0.0-7.0); HEMATOCRIT 33.9 % (42.0-52.0); HEMOGLOBIN 10.6 g/dl (14.0-18.0); LYMPHOCYTES # 0.6 10^3/ul (0.8-2.9); LYMPHOCYTES % 7.9 % (15.0-51.0); MEAN CORPUSCULAR HEMOGLOBIN 29.4 pg (29.0-33.0); MEAN CORPUSCULAR HGB CONC 31.3 g/dl (32.0-37.0); MEAN CORPUSCULAR VOLUME 93.9 fl (82.0-101.0); MEAN PLATELET VOLUME 11.2 fl (7.4-10.4); MONOCYTE # 0.4 10^3/ul (0.3-0.9); NEUTROPHIL # 5.9 10^3/ul (1.6-7.5); PLATELET COUNT 311 10^3/UL (140-415); POSITIVE DIFF @See below; RED BLOOD COUNT 3.61 10^6/ul (4.70-6.10); RED CELL DISTRIBUTION WIDTH 15.9 % (11.5-14.5)
[2018-01-26] MEDS: BISACODYL 10 MG SUPP PR (09:02)
[2018-01-26] MEDS: FLUCONAZOLE 100 MG TAB GTB (09:02)
[2018-01-26] MEDS: ENTACAPONE 200 MG TAB GTB ×5 (09:02→20:37)
[2018-01-26] MEDS: DONEPEZIL 10 MG TAB GTB (09:02)
[2018-01-26] MEDS: CARBIDOPA/LEVODOPA (25/100) TAB GTB ×5 (09:02→20:37)
[2018-01-26] MEDS: ASPIRIN 81 MG TAB PO (09:02)
[2018-01-26] MEDS: DOCUSATE SODIUM 10 MG/ML (10ML CUP) GTB (09:02)
[2018-01-26] MEDS: CLOTRIMAZOLE 1% 30 GM CR TOP ×2 (09:03→20:37)
[2018-01-26] MEDS: ENOXAPARIN 30 MG/0.3 ML SYG SC (09:04)
[2018-01-26 09:20] LABS: ANION GAP 9 (8-16); BLOOD UREA NITROGEN 16 mg/dl (7-20); CALCIUM 8.6 mg/dl (8.4-10.2); CARBON DIOXIDE 28 mmol/L (21-31); CHLORIDE 108 mmol/L (97-110); GLUCOSE 118 mg/dl (70-220); SODIUM 141 mmol/L (135-144)
[2018-01-26] MEDS: DEXTROSE 5% 1,000 ML IV (17:33)
[2018-01-26] MEDS: DOXAZOSIN 1 MG TAB GTB (20:36)
[2018-01-26] MEDS: QUETIAPINE 25 MG TAB GTB (20:37)
[2018-01-26] MEDS: ATORVASTATIN 10 MG TAB PO (20:37)
[2018-01-27] MEDS: LANSOPRAZOLE 30 MG CAP GTB (06:10)
[2018-01-27] MEDS: DOCUSATE SODIUM 10 MG/ML (10ML CUP) GTB (08:04)
[2018-01-27] MEDS: DONEPEZIL 10 MG TAB GTB (08:04)
[2018-01-27] MEDS: CLOTRIMAZOLE 1% 30 GM CR TOP ×2 (08:05→20:11)
[2018-01-27] MEDS: BISACODYL 10 MG SUPP PR (08:05)
[2018-01-27] MEDS: ASPIRIN 81 MG TAB PO (08:05)
[2018-01-27] MEDS: ENOXAPARIN 30 MG/0.3 ML SYG SC (08:07)
[2018-01-27] MEDS: CARBIDOPA/LEVODOPA (25/100) TAB GTB ×5 (08:12→20:11)
[2018-01-27] MEDS: FLUCONAZOLE 100 MG TAB GTB (08:12)
[2018-01-27] MEDS: ENTACAPONE 200 MG TAB GTB ×5 (08:12→20:10)
[2018-01-27] MEDS: HYDROCODONE/APAP (5/325) TAB GTB (15:25)
[2018-01-27] MEDS: DEXTROSE 5% 1,000 ML IV (15:27)
[2018-01-27] MEDS: ATORVASTATIN 10 MG TAB PO (20:09)
[2018-01-27] MEDS: QUETIAPINE 25 MG TAB GTB (20:10)
[2018-01-27] MEDS: DOXAZOSIN 1 MG TAB GTB (20:12)
[2018-01-28] MEDS: LANSOPRAZOLE 30 MG CAP GTB (05:25)
[2018-01-28 07:16] LABS: ADD MAN DIFF? NO
[2018-01-28 07:22] LABS: WHITE BLOOD COUNT 6.7 10^3/ul (4.8-10.8)
[2018-01-28 07:22] LABS: BASOPHILS % 0.6 % (0.0-2.0); EOSINOPHILS # 0.1 10^3/ul (0.0-0.5); EOSINOPHILS % 2.1 % (0.0-7.0); HEMATOCRIT 33.5 % (42.0-52.0); HEMOGLOBIN 10.6 g/dl (14.0-18.0); LYMPHOCYTES # 0.7 10^3/ul (0.8-2.9); LYMPHOCYTES % 10.7 % (15.0-51.0); MEAN CORPUSCULAR HEMOGLOBIN 29.4 pg (29.0-33.0); MEAN CORPUSCULAR HGB CONC 31.6 g/dl (32.0-37.0); MEAN CORPUSCULAR VOLUME 93.1 fl (82.0-101.0); MEAN PLATELET VOLUME 11.2 fl (7.4-10.4); MONOCYTE # 0.6 10^3/ul (0.3-0.9); MONOCYTES % 8.3 % (0.0-11.0); NEUTROPHIL # 5.2 10^3/ul (1.6-7.5); PLATELET COUNT 324 10^3/UL (140-415); RED CELL DISTRIBUTION WIDTH 16.1 % (11.5-14.5)
[2018-01-28 07:55] LABS: ANION GAP 10 (8-16); BLOOD UREA NITROGEN 17 mg/dl (7-20); CALCIUM 8.7 mg/dl (8.4-10.2); CARBON DIOXIDE 28 mmol/L (21-31); CHLORIDE 108 mmol/L (97-110); CREATININE 0.52 mg/dl (0.61-1.24); GLUCOSE 96 mg/dl (70-220); POTASSIUM 4.1 mmol/L (3.5-5.1); SODIUM 142 mmol/L (135-144)
[2018-01-28] MEDS: BISACODYL 10 MG SUPP PR (09:40)
[2018-01-28] MEDS: CLOTRIMAZOLE 1% 30 GM CR TOP ×2 (09:40→22:52)
[2018-01-28] MEDS: ENTACAPONE 200 MG TAB GTB ×5 (09:40→22:51)
[2018-01-28] MEDS: FLUCONAZOLE 100 MG TAB GTB (09:40)
[2018-01-28] MEDS: CARBIDOPA/LEVODOPA (25/100) TAB GTB ×5 (09:40→22:50)
[2018-01-28] MEDS: ASPIRIN 81 MG TAB PO (09:40)
[2018-01-28] MEDS: DONEPEZIL 10 MG TAB GTB (09:40)
[2018-01-28] MEDS: DOCUSATE SODIUM 10 MG/ML (10ML CUP) GTB (09:41)
[2018-01-28] MEDS: ENOXAPARIN 30 MG/0.3 ML SYG SC (09:46)
[2018-01-28] MEDS: DEXTROSE 5% 1,000 ML IV (11:49)
[2018-01-28] MEDS: QUETIAPINE 25 MG TAB GTB (22:50)
[2018-01-28] MEDS: ATORVASTATIN 10 MG TAB PO (22:51)
[2018-01-28] MEDS: DOXAZOSIN 1 MG TAB GTB (22:51)
[2018-01-29] MEDS: LANSOPRAZOLE 30 MG CAP GTB (06:28)
[2018-01-29] MEDS: DONEPEZIL 10 MG TAB GTB (08:02)
[2018-01-29] MEDS: ENTACAPONE 200 MG TAB GTB ×5 (08:03→23:01)
[2018-01-29] MEDS: DOCUSATE SODIUM 10 MG/ML (10ML CUP) GTB (08:03)
[2018-01-29] MEDS: BISACODYL 10 MG SUPP PR ×2 (08:04→08:10)
[2018-01-29] MEDS: ASPIRIN 81 MG TAB PO (08:04)
[2018-01-29] MEDS: ENOXAPARIN 30 MG/0.3 ML SYG SC (08:07)
[2018-01-29] MEDS: CARBIDOPA/LEVODOPA (25/100) TAB GTB ×5 (08:08→23:01)
[2018-01-29] MEDS: CLOTRIMAZOLE 1% 30 GM CR TOP ×2 (08:09→21:00)
[2018-01-29] MEDS: HYDROCODONE/APAP (5/325) TAB GTB ×2 (10:15→23:02)
[2018-01-29] MEDS: ATORVASTATIN 10 MG TAB PO (23:01)
[2018-01-29] MEDS: QUETIAPINE 25 MG TAB GTB (23:01)
[2018-01-30] MEDS: LANSOPRAZOLE 30 MG CAP GTB (06:17)
[2018-01-30] MEDS: DOCUSATE SODIUM 10 MG/ML (10ML CUP) GTB (08:18)
[2018-01-30] MEDS: DONEPEZIL 10 MG TAB GTB (08:18)
[2018-01-30] MEDS: BISACODYL 10 MG SUPP PR (08:18)
[2018-01-30] MEDS: ENTACAPONE 200 MG TAB GTB ×5 (08:18→21:34)
[2018-01-30] MEDS: ASPIRIN 81 MG TAB PO (08:18)
[2018-01-30] MEDS: CARBIDOPA/LEVODOPA (25/100) TAB GTB ×5 (08:18→21:34)
[2018-01-30] MEDS: ENOXAPARIN 30 MG/0.3 ML SYG SC (08:23)
[2018-01-30] MEDS: CLOTRIMAZOLE 1% 30 GM CR TOP ×2 (08:27→21:35)
[2018-01-30] MEDS: ATORVASTATIN 10 MG TAB PO (21:34)
[2018-01-30] MEDS: QUETIAPINE 25 MG TAB GTB (21:34)
[2018-01-31] MEDS: LANSOPRAZOLE 30 MG CAP GTB (05:48)
[2018-01-31] MEDS: HYDROCODONE/APAP (5/325) TAB GTB ×2 (09:02→21:19)
[2018-01-31] MEDS: DOCUSATE SODIUM 10 MG/ML (10ML CUP) GTB (09:02)
[2018-01-31] MEDS: BISACODYL 10 MG SUPP PR (09:03)
[2018-01-31] MEDS: DONEPEZIL 10 MG TAB GTB (09:03)
[2018-01-31] MEDS: ENOXAPARIN 30 MG/0.3 ML SYG SC (09:04)
[2018-01-31] MEDS: ENTACAPONE 200 MG TAB GTB ×5 (09:07→20:28)
[2018-01-31] MEDS: ASPIRIN 81 MG TAB PO (09:07)
[2018-01-31] MEDS: CARBIDOPA/LEVODOPA (25/100) TAB GTB ×5 (09:07→20:27)
[2018-01-31] MEDS: CLOTRIMAZOLE 1% 30 GM CR TOP ×2 (12:13→20:28)
[2018-01-31] MEDS: QUETIAPINE 25 MG TAB GTB (20:27)
[2018-01-31] MEDS: ATORVASTATIN 10 MG TAB PO (20:28)
[2018-02-01] MEDS: LANSOPRAZOLE 30 MG CAP GTB (05:31)
[2018-02-01] MEDS: HYDROCODONE/APAP (5/325) TAB GTB ×2 (05:33→16:53)
[2018-02-01] MEDS: CLOTRIMAZOLE 1% 30 GM CR TOP ×2 (09:00→22:16)
[2018-02-01] MEDS: BISACODYL 10 MG SUPP PR (09:15)
[2018-02-01] MEDS: DOCUSATE SODIUM 10 MG/ML (10ML CUP) GTB (09:15)
[2018-02-01] MEDS: ENTACAPONE 200 MG TAB GTB ×5 (09:15→22:15)
[2018-02-01] MEDS: ASPIRIN 81 MG TAB PO (09:16)
[2018-02-01] MEDS: CARBIDOPA/LEVODOPA (25/100) TAB GTB ×5 (09:16→22:15)
[2018-02-01] MEDS: DONEPEZIL 10 MG TAB GTB (09:16)
[2018-02-01] MEDS: ENOXAPARIN 30 MG/0.3 ML SYG SC (09:17)
[2018-02-01 17:41] LABS: ADD MAN DIFF? NO
[2018-02-01 17:42] LABS: WHITE BLOOD COUNT 6.8 10^3/ul (4.8-10.8)
[2018-02-01 17:42] LABS: BASOPHILS % 0.4 % (0.0-2.0); EOSINOPHILS # 0.1 10^3/ul (0.0-0.5); EOSINOPHILS % 0.9 % (0.0-7.0); HEMATOCRIT 37.5 % (42.0-52.0); LYMPHOCYTES # 0.8 10^3/ul (0.8-2.9); MEAN CORPUSCULAR HEMOGLOBIN 29.4 pg (29.0-33.0); MEAN CORPUSCULAR VOLUME 91.9 fl (82.0-101.0); MEAN PLATELET VOLUME 10.8 fl (7.4-10.4); MONOCYTE # 0.5 10^3/ul (0.3-0.9); MONOCYTES % 6.8 % (0.0-11.0); NEUTROPHIL # 5.4 10^3/ul (1.6-7.5); NEUTROPHILS % 79.6 % (39.0-77.0); PLATELET COUNT 320 10^3/UL (140-415); RED BLOOD COUNT 4.08 10^6/ul (4.70-6.10); RED CELL DISTRIBUTION WIDTH 15.8 % (11.5-14.5)
[2018-02-01 18:00] LABS: ANION GAP 11 (8-16); BLOOD UREA NITROGEN 19 mg/dl (7-20); CALCIUM 8.8 mg/dl (8.4-10.2); CARBON DIOXIDE 29 mmol/L (21-31); CHLORIDE 105 mmol/L (97-110); CREATININE 0.53 mg/dl (0.61-1.24); GLUCOSE 112 mg/dl (70-220); POTASSIUM 4.3 mmol/L (3.5-5.1); SODIUM 141 mmol/L (135-144)
[2018-02-01] MEDS: LORAZEPAM 0.5 MG TAB GTB (18:11)
[2018-02-01] MEDS: QUETIAPINE 25 MG TAB GTB (22:15)
[2018-02-01] MEDS: ATORVASTATIN 10 MG TAB PO (22:16)
[2018-02-02] MEDS: LORAZEPAM 0.5 MG TAB GTB ×2 (02:02→15:42)
[2018-02-02] MEDS: ONDANSETRON 4 MG INJ IV (02:03)
[2018-02-02] MEDS: HYDROCODONE/APAP (5/325) TAB GTB (02:11)
[2018-02-02] MEDS: LANSOPRAZOLE 30 MG CAP GTB (05:15)
[2018-02-02] MEDS: DONEPEZIL 10 MG TAB GTB (09:42)
[2018-02-02] MEDS: ENTACAPONE 200 MG TAB GTB ×5 (09:42→20:33)
[2018-02-02] MEDS: CARBIDOPA/LEVODOPA (25/100) TAB GTB ×5 (09:42→20:33)
[2018-02-02] MEDS: ASPIRIN 81 MG TAB PO (09:43)
[2018-02-02] MEDS: BISACODYL 10 MG SUPP PR (09:43)
[2018-02-02] MEDS: QUETIAPINE 25 MG TAB GTB ×2 (09:43→20:33)
[2018-02-02] MEDS: DOCUSATE SODIUM 10 MG/ML (10ML CUP) GTB (09:43)
[2018-02-02] MEDS: ENOXAPARIN 30 MG/0.3 ML SYG SC (09:46)
[2018-02-02] MEDS: CLOTRIMAZOLE 1% 30 GM CR TOP ×2 (12:13→20:34)
[2018-02-02] MEDS: ATORVASTATIN 10 MG TAB PO (20:33)
[2018-02-03] MEDS: LORAZEPAM 0.5 MG TAB GTB ×2 (02:42→21:04)
[2018-02-03] MEDS: LANSOPRAZOLE 30 MG CAP GTB (06:38)
[2018-02-03] MEDS: DONEPEZIL 10 MG TAB GTB (08:22)
[2018-02-03] MEDS: QUETIAPINE 25 MG TAB GTB ×2 (08:22→21:04)
[2018-02-03] MEDS: ASPIRIN 81 MG TAB PO (08:23)
[2018-02-03] MEDS: CLOTRIMAZOLE 1% 30 GM CR TOP ×2 (08:23→21:04)
[2018-02-03] MEDS: BISACODYL 10 MG SUPP PR (08:23)
[2018-02-03] MEDS: DOCUSATE SODIUM 10 MG/ML (10ML CUP) GTB (08:23)
[2018-02-03] MEDS: ENOXAPARIN 30 MG/0.3 ML SYG SC (08:28)
[2018-02-03] MEDS: ENTACAPONE 200 MG TAB GTB ×5 (08:30→23:42)
[2018-02-03] MEDS: CARBIDOPA/LEVODOPA (25/100) TAB GTB ×5 (08:30→23:42)
[2018-02-03] MEDS: ATORVASTATIN 10 MG TAB PO (21:04)
[2018-02-04] MEDS: LANSOPRAZOLE 30 MG CAP GTB (06:00)
[2018-02-04] MEDS: HYDROCODONE/APAP (5/325) TAB GTB ×2 (06:01→10:27)
[2018-02-04] MEDS: DOCUSATE SODIUM 10 MG/ML (10ML CUP) GTB (09:20)
[2018-02-04] MEDS: DONEPEZIL 10 MG TAB GTB (09:20)
[2018-02-04] MEDS: ASPIRIN 81 MG TAB PO (09:20)
[2018-02-04] MEDS: BISACODYL 10 MG SUPP PR (09:20)
[2018-02-04] MEDS: QUETIAPINE 25 MG TAB GTB ×2 (09:20→21:11)
[2018-02-04] MEDS: ENOXAPARIN 30 MG/0.3 ML SYG SC (09:25)
[2018-02-04] MEDS: CARBIDOPA/LEVODOPA (25/100) TAB GTB ×5 (09:27→21:11)
[2018-02-04] MEDS: ENTACAPONE 200 MG TAB GTB ×5 (09:27→21:11)
[2018-02-04] MEDS: CLOTRIMAZOLE 1% 30 GM CR TOP ×2 (09:27→21:11)
[2018-02-04] MEDS: LORAZEPAM 0.5 MG TAB GTB (10:27)
[2018-02-04] MEDS: ATORVASTATIN 10 MG TAB PO (21:11)
[2018-02-05] MEDS: LANSOPRAZOLE 30 MG CAP GTB (05:53)
[2018-02-05] MEDS: QUETIAPINE 25 MG TAB GTB ×2 (09:19→21:28)
[2018-02-05] MEDS: DOCUSATE SODIUM 10 MG/ML (10ML CUP) GTB (09:19)
[2018-02-05] MEDS: BISACODYL 10 MG SUPP PR (09:19)
[2018-02-05] MEDS: DONEPEZIL 10 MG TAB GTB (09:19)
[2018-02-05] MEDS: ASPIRIN 81 MG TAB PO (09:19)
[2018-02-05] MEDS: CARBIDOPA/LEVODOPA (25/100) TAB GTB ×5 (09:23→21:28)
[2018-02-05] MEDS: CLOTRIMAZOLE 1% 30 GM CR TOP ×2 (09:24→21:30)
[2018-02-05] MEDS: ENTACAPONE 200 MG TAB GTB ×5 (09:24→21:29)
[2018-02-05] MEDS: ENOXAPARIN 30 MG/0.3 ML SYG SC (09:25)
[2018-02-05] MEDS: LORAZEPAM 0.5 MG TAB GTB (10:56)
[2018-02-05] MEDS: ATORVASTATIN 10 MG TAB PO (21:28)
[2018-02-06] MEDS: LANSOPRAZOLE 30 MG CAP GTB (05:40)
[2018-02-06] MEDS: BISACODYL 10 MG SUPP PR (09:00)
[2018-02-06] MEDS: DOCUSATE SODIUM 10 MG/ML (10ML CUP) GTB (09:50)
[2018-02-06] MEDS: DONEPEZIL 10 MG TAB GTB (09:50)
[2018-02-06] MEDS: ASPIRIN 81 MG TAB PO (09:51)
[2018-02-06] MEDS: CARBIDOPA/LEVODOPA (25/100) TAB GTB ×5 (09:51→21:23)
[2018-02-06] MEDS: QUETIAPINE 25 MG TAB GTB ×2 (09:51→21:23)
[2018-02-06] MEDS: ENTACAPONE 200 MG TAB GTB ×5 (09:51→21:23)
[2018-02-06] MEDS: CLOTRIMAZOLE 1% 30 GM CR TOP ×2 (09:52→21:23)
[2018-02-06] MEDS: ENOXAPARIN 30 MG/0.3 ML SYG SC (10:20)
[2018-02-06] MEDS: ATORVASTATIN 10 MG TAB PO (21:22)
[2018-02-06] MEDS: HYDROCODONE/APAP (5/325) TAB GTB (21:23)
[2018-02-07] MEDS: LANSOPRAZOLE 30 MG CAP GTB (05:09)
[2018-02-07] MEDS: BISACODYL 10 MG SUPP PR (08:45)
[2018-02-07] MEDS: ASPIRIN 81 MG TAB PO (08:45)
[2018-02-07] MEDS: QUETIAPINE 25 MG TAB GTB ×2 (08:45→21:11)
[2018-02-07] MEDS: DONEPEZIL 10 MG TAB GTB (08:45)
[2018-02-07] MEDS: DOCUSATE SODIUM 10 MG/ML (10ML CUP) GTB (08:45)
[2018-02-07] MEDS: ENOXAPARIN 30 MG/0.3 ML SYG SC (09:23)
[2018-02-07] MEDS: CLOTRIMAZOLE 1% 30 GM CR TOP ×2 (09:24→21:11)
[2018-02-07] MEDS: CARBIDOPA/LEVODOPA (25/100) TAB GTB ×5 (09:31→21:11)
[2018-02-07] MEDS: ENTACAPONE 200 MG TAB GTB ×5 (09:31→21:10)
[2018-02-07] MEDS: LORAZEPAM 0.5 MG TAB GTB (12:39)
[2018-02-07] MEDS: HYDROCODONE/APAP (5/325) TAB GTB ×2 (14:50→21:10)
[2018-02-07] MEDS: ATORVASTATIN 10 MG TAB PO (21:11)
[2018-02-08] MEDS: HYDROCODONE/APAP (5/325) TAB GTB (03:52)
[2018-02-08] MEDS: LORAZEPAM 0.5 MG TAB GTB (06:07)
[2018-02-08] MEDS: LANSOPRAZOLE 30 MG CAP GTB (06:07)
[2018-02-08] MEDS: ENOXAPARIN 30 MG/0.3 ML SYG SC (09:00)
[2018-02-08] MEDS: CLOTRIMAZOLE 1% 30 GM CR TOP (09:00)
[2018-02-08] MEDS: ENTACAPONE 200 MG TAB GTB ×5 (09:00→17:23)
[2018-02-08] MEDS: DOCUSATE SODIUM 10 MG/ML (10ML CUP) GTB (10:24)
[2018-02-08] MEDS: ASPIRIN 81 MG TAB PO (10:25)
[2018-02-08] MEDS: DONEPEZIL 10 MG TAB GTB (10:25)
[2018-02-08] MEDS: BISACODYL 10 MG SUPP PR (10:25)
[2018-02-08] MEDS: QUETIAPINE 25 MG TAB GTB (10:25)
[2018-02-08] MEDS: CARBIDOPA/LEVODOPA (25/100) TAB GTB ×4 (10:27→17:23)
[2018-02-08] MEDS: LORAZEPAM 2 MG INJ IV ×2 (11:08→20:27)
== END 2018-02-08 20:45 | DRG 870 ==
LOC: E/R 05:15 → TEL 15:48
PROC: 5A1955Z Respiratory Ventilation, Greater than 96 Consecutive Hours (ICD-10-PCS; principal; 2018-01-11)
DX: A41.9 Sepsis, unspecified organism (principal); J96.21 Acute and chronic respiratory failure with hypoxia; J69.0 Pneumonitis due to inhalation of food and vomit; I50.33 Acute on chronic diastolic (congestive) heart failure; J15.6 Pneumonia due to other Gram-negative bacteria; E44.0 Moderate protein-calorie malnutrition; Z68.1 Body mass index [BMI] 19.9 or less, adult; N17.9 Acute kidney failure, unspecified; N13.30 Unspecified hydronephrosis; E87.4 Mixed disorder of acid-base balance; E87.0 Hyperosmolality and hypernatremia; R65.20 Severe sepsis without septic shock; I11.0 Hypertensive heart disease with heart failure; R13.10 Dysphagia, unspecified; G20 Parkinson's disease; F02.80 Dementia in other diseases classified elsewhere, unspecified severity, without behavioral disturbance, psychotic disturbance, mood disturbance, and anxiety; E78.5 Hyperlipidemia, unspecified; E86.0 Dehydration; B37.9 Candidiasis, unspecified; R32 Unspecified urinary incontinence; L89.90 Pressure ulcer of unspecified site, unspecified stage; Z93.1 Gastrostomy status; Z93.0 Tracheostomy status
CPT/HCPCS: 36415; 36600; 70450; 71045; 71250; 74018; 74176; 76775; 80048; 80053; 80202; 81001; 82140; 82607; 82803; 82962; 83605; 83735; 84145; 84443; 84484; 85025; 85610; 85730; 87040; 87070; 87081; 87086; 87400; 89220; 92526; 92610; 93005; 94002; 94003; 96374; 96375; 97110; 97163; 97167; 97530; 97535; 99291-25